=== PATIENT | female | born 1965 | race Caucasian/White ===

== ENCOUNTER 2020-07-13 13:29 | Outpatient (CLI) | payer BC | END 2020-07-13 13:30 | disposition home or self-care (01) | LOC: CSHMAMMO 13:29 | PROVIDERS: ATTEND Obstetrics & Gynecology | DX: Z12.31 Encounter for screening mammogram for malignant neoplasm of breast (principal) | CPT/HCPCS: 77063; 77067 ==

== ENCOUNTER 2021-08-10 14:57 | Outpatient (CLI) | payer BC | END 2021-08-10 14:58 | disposition home or self-care (01) | LOC: CSHMAMMO 14:57 | PROVIDERS: ATTEND Obstetrics & Gynecology | DX: Z12.31 Encounter for screening mammogram for malignant neoplasm of breast (principal); Z80.3 Family history of malignant neoplasm of breast | CPT/HCPCS: 77063; 77067 ==

== ENCOUNTER 2022-09-20 14:59 | Outpatient (CLI) | payer OTHER | END 2022-09-20 15:00 | disposition home or self-care (01) | LOC: CSHMAMMO 14:59 | PROVIDERS: ATTEND Obstetrics & Gynecology | DX: Z12.31 Encounter for screening mammogram for malignant neoplasm of breast (principal); Z80.3 Family history of malignant neoplasm of breast | CPT/HCPCS: 77063; 77067 ==

== ENCOUNTER 2023-09-22 13:06 | Outpatient (CLI) | payer OTHER | END 2023-09-22 13:07 | disposition home or self-care (01) | LOC: CSHMAMMO 13:06 | PROVIDERS: ATTEND Obstetrics & Gynecology | DX: Z12.31 Encounter for screening mammogram for malignant neoplasm of breast (principal); Z80.3 Family history of malignant neoplasm of breast | CPT/HCPCS: 77063; 77067 ==